=== PATIENT | male | born 1955 | race Caucasian/White ===

== ENCOUNTER → 2019-06-18 | Day surgery (SDC) | payer MEDICARE ==
[~2019-06-18] MED LIST: ACETAMINOPHEN 325 MG TABLET PO PRN; ALBUTEROL SULFATE 2.5 MG/3 ML NEBU. NEB PRN; ATOR40TA59 PO; ATROPINE 0.5 MG/5 ML DISP.SYRIN. IV PRN; CLOP75TA57 PO; GABA800T5 PO; INSU100C4 SQ; INSU300I SQ; IV RINGERS SOLUTION,LACTATED 1,000 ML IV SCH; LOSA1TAB19 PO; METF-550 PO; METO25TA4 PO; ONDANSETRON PF 4 MG/2 ML VIAL. IV PRN; OXYC5TAB4 PO; PHENOL ORAL SPRAY 177ML BOTTLE. MM PRN; PROPOFOL 20 ML IV ONE; diphenhydrAMINE 50 MG/ML VIAL IV PRN
[2019-06-18 10:42] VITALS: BP 137/70
--- NOTE | 2019-06-19 15:07 | PATHOLOGY ---
[facility] Accession Number: [id number] . 01 Material submitted: . PART A: colon - TRANSVERSE POLYP. Modifiers: transverse PART B: colon - SIGMOID POLYP. Modifiers: sigmoid . 01 Clinical history: . None provided. . 02 Diagnosis: A. Colon biopsy, transverse colon polyp: - Tubular adenoma. . B. Colon biopsy, sigmoid polyp: - Hyperplastic polyp. ([facility] 06/19/2019) [facility] 06/19/2019 0827 Local . 02 Comment: There is no high-grade dysplasia or evidence of malignancy. ([facility] 06/19/2019) . 02 Electronically signed: . Hector Amaya MD, Pathologist NPI- [id number] . 01 Gross description: . A. Received in formalin labeled "Kishor Wilson.Chava, transverse polyp" is a 0.5 x 0.4 x 0.1 cm fragment of keane-brown soft tissue. The specimen is submitted entirely in A1. . B. Received in formalin labeled "Kishor Wilson., Chava, sigmoid polyp" is a 0.4 x 0.3 x 0.1 cm fragment of keane-brown soft tissue. The specimen is submitted entirely in B1. ([facility] [place]; 06/18/2019) [facility] 06/18/2019 1925 Local . 02 Pathologist provided ICD-10: D12.3, K63.5 . 02 CPT . 404526, 882532 Specimen Comment: A courtesy copy of this report has been sent to [phone], [phone] Specimen Comment: [phone] Specimen Comment: Report sent to / DR SALCEDO Performed at: [address], [place], [place] [id number] MD Prakash Moreno MD Phone: [phone] Performed at: [address] [id number] MD Hector Amaya MD Phone: [phone]
== END ==
LOC: SURG 08:00
PROVIDERS: ATTEND Emergency Medicine
DX: Z12.11 Encounter for screening for malignant neoplasm of colon (principal); K63.5 Polyp of colon; I10 Essential (primary) hypertension; I25.2 Old myocardial infarction; E78.5 Hyperlipidemia, unspecified; K21.9 Gastro-esophageal reflux disease without esophagitis; E11.40 Type 2 diabetes mellitus with diabetic neuropathy, unspecified; Z87.891 Personal history of nicotine dependence; Z79.84 Long term (current) use of oral hypoglycemic drugs
CPT/HCPCS: 45380; 82947; 88305; J2704; J7120